=== PATIENT | female | born 1990 | race Caucasian/White ===

== ENCOUNTER → 2022-05-17 07:12 | Outpatient (CLI) | payer MEDICAID, SELFPAY | PROVIDERS: PCP Nurse Practitioner; Visit Provider Nurse Practitioner | DX: R39.89 Other symptoms and signs involving the genitourinary system (principal); B96.29 Other Escherichia coli [E. coli] as the cause of diseases classified elsewhere | CPT/HCPCS: 87086; 87088; 87186 ==

== ENCOUNTER → 2023-01-24 15:20 | Outpatient (CLI) | payer MEDICAID, SELFPAY | PROVIDERS: PCP Nurse Practitioner; Visit Provider Nurse Practitioner | DX: J06.9 Acute upper respiratory infection, unspecified (principal) | CPT/HCPCS: C9803; U0003; U0005 ==

== ENCOUNTER → 2023-02-15 23:11 | Outpatient (CLI) | payer MEDICAID, SELFPAY | PROVIDERS: PCP Nurse Practitioner; Visit Provider Nurse Practitioner | DX: R30.0 Dysuria (principal); B96.29 Other Escherichia coli [E. coli] as the cause of diseases classified elsewhere | CPT/HCPCS: 87086; 87088; 87186 ==

== ENCOUNTER 2024-02-13 08:59 | Outpatient (CLI) | payer MEDICAID, SELFPAY ==
[2024-02-13 18:24] LABS: Basophils # 0.1 K/mm3 (0-0.2); Basophils % 1.2 % (0.1-2.0); Eosinophils # 0.3 K/mm3 (0.0-0.4); Eosinophils % 4.9 % (0.1-12.0); Hematocrit 42.2 % (37.0-47.0); Hemoglobin 13.7 g/dL (12.2-16.2); Lymphocytes # 2.6 K/mm3 (0.7-4.5); Lymphocytes % 43.5 % (10-50); Mean Corpuscular HGB Conc 32.4 g/dL (31.8-35.4); Mean Corpuscular Hemoglobin 29.9 pg (27.0-31.2); Mean Corpuscular Volume 92.4 fl (81-99); Mean Platelet Volume 8.7 fl (7.4-10.4); Monocytes # 0.4 K/mm3 (0.1-1.0); Neutrophils # 2.6 K/mm3 (1.8-7.8); Neutrophils % 43.2 % (37.0-80.0); Platelet Count 250 K/mm3 (142-424); Red Blood Count 4.57 M/mm3 (4.20-5.40); Red Cell Distribution Width 12.8 % (11.5-17.5)
[2024-02-13 18:44] LABS: Hemoglobin A1C 5.2 % (4.0-6.0)
[2024-02-13 18:53] LABS: Alanine Aminotransferase 19 U/L (12-78); Albumin Level 4.1 g/dl (3.5-5.0); Albumin/Globulin Ratio 1.6 (1.1-1.8); Alkaline Phosphatase 47 U/L (38-126); Anion Gap 11.2 mEq/L (5-15); Aspartate Amino Transferase 24 U/L (14-36); Bilirubin,Total 0.4 mg/dl (0.2-1.3); Blood Urea Nitrogen 14 mg/dl (7-17); Calcium 9.2 mg/dl (8.4-10.2); Carbon Dioxide 29 mmol/L (22.0-30.0); Chloride 104 mmol/L (98-107); Estimated Glomerular Filt Rate 95 ml/min (>60); GFR (African American) 115 ML/MIN (>60); Globulin 2.6 g/dL (1.3-3.2); Glucose 78 mg/dl (74-100); Potassium 4.2 mmoL/L (3.5-5.1); Sodium 140 mmol/L (136-145); Total Protein,Serum 6.7 g/dl (6.3-8.2)
[2024-02-13 19:09] LABS: HCG,Quantitative 27 mIU/ml (0-5.42)
[2024-02-13 19:24] LABS: Thyroid Stimulating Hormone 0.85 uIU/mL (0.465-4.68)
== END 2024-02-13 23:59 | disposition home or self-care (01) ==
LOC: LAB.DROPOF 02-14 09:58
PROVIDERS: PCP Nurse Practitioner; Visit Provider Nurse Practitioner
DX: N91.2 Amenorrhea, unspecified (principal); Z34.90 Encounter for supervision of normal pregnancy, unspecified, unspecified trimester
CPT/HCPCS: 80050; 80053; 83036; 84443; 84702; 85025

== ENCOUNTER 2024-02-14 21:59 | Emergency (ER) | payer MEDICAID, SELFPAY ==
[2024-02-14 22:00] VITALS: BP 153/91; PULSE 76; RESP 16; TEMP 37.1; O2SAT 100; BMI 30.6
[2024-02-14 22:34] LABS: Microscopic, Urine URINE MICROSCOPIC (MICROSCOPIC)
[2024-02-14 22:37] LABS: Basophils # 0.2 K/mm3 (0-0.2); Basophils % 1.6 % (0.1-2.0); Eosinophils # 0.4 K/mm3 (0.0-0.4); Eosinophils % 3.9 % (0.1-12.0); Hematocrit 39.8 % (37.0-47.0); Hemoglobin 13.1 g/dL (12.2-16.2); Lymphocytes # 4.3 K/mm3 (0.7-4.5); Lymphocytes % 45.4 % (10-50); Mean Corpuscular Hemoglobin 29.9 pg (27.0-31.2); Mean Corpuscular Volume 90.7 fl (81-99); Mean Platelet Volume 8.5 fl (7.4-10.4); Monocytes # 0.5 K/mm3 (0.1-1.0); Monocytes % 5.7 % (1.7-9.3); Neutrophils # 4.1 K/mm3 (1.8-7.8); Neutrophils % 43.3 % (37.0-80.0); Platelet Count 237 K/mm3 (142-424); Red Blood Count 4.39 M/mm3 (4.20-5.40); Red Cell Distribution Width 12.9 % (11.5-17.5); White Blood Count 9.4 K/mm3 (4.8-10.8)
[2024-02-14 22:42] LABS: Chloride 104 mmol/L (98-107); Potassium 3.2 mmoL/L (3.5-5.1); Sodium 140 mmol/L (136-145)
[2024-02-14 22:44] LABS: Appearance,Urine SL CLOUDY (Clear); Bilirubin,Urine Negative (Negative); Blood, Urine 3+ (Negative); Color,Urine YELLOW (Yellow); Glucose,Urine (UA) Negative (Negative); Ketones,Urine Negative (Negative); Leukocyte Esterase,Urine Negative (Negative); Nitrate,Urine Negative (Negative); Protein,Urine Negative (Negative); Specific Gravity, Urine >= 1.030 (1.005-1.030)
[2024-02-14 22:45] LABS: Alanine Aminotransferase 22 U/L (12-78); Albumin/Globulin Ratio 1.3 (1.1-1.8); Alkaline Phosphatase 47 U/L (38-126); Anion Gap 8.2 mEq/L (5-15); Aspartate Amino Transferase 29 U/L (14-36); Bilirubin,Total 0.3 mg/dl (0.2-1.3); Blood Urea Nitrogen 15 mg/dl (7-17); Calcium 8.8 mg/dl (8.4-10.2); Carbon Dioxide 31 mmol/L (22.0-30.0); Creatinine Clearance Estimated 115 mL/min (50-200); Estimated Glomerular Filt Rate 71 ml/min (>60); GFR (African American) 86 ML/MIN (>60); Glucose 92 mg/dl (74-100)
--- NOTE | 2024-02-14 22:48 | ED_ITS ---
Discharge Plan Disposition Chief Complaint: Vaginal Bleeding Prescriptions Prescriptions: No Action montelukast 10 mg tablet 10 mg PO DAILY Qty: 30 11RF cetirizine [Zyrtec] 10 mg tablet 10 mg PO DAILY PRN (Reason: allergy symptoms) Qty: 30 3RF fluticasone propionate [Flonase Allergy Relief] 50 mcg/actuation spray,suspension 1 spray intranasal DAILY Qty: 16 2RF Rx Instructions: administer into each nostril Referrals Follow up/Referrals: Esha Bellamy APRN [Primary Care Provider] - See instructions Clinical Impressions Clinical Impression: Threatened Discharge ED Provider: Dyana Wallace General Adult HPI General Chief complaint: Vaginal Bleeding Stated complaint: poss miscarriage Time Seen by Provider: 02/14/24 22:24 Mode of Arrival: Ambulatory Source of Information: Patient Limitations: No Limitations Description of Symptoms (Recalled from ER Triage Doc. by RN): pt states she found out she was pregant on sunday and see pcp on sunday. pt states she began having bright red blood and blood clots and cramping tonight @ 6. History of Present Illness HPI narrative: Patient is a 33-year-old female presenting today with positive home test and vaginal bleeding. She states that she has been attempting to get felt as though she was 5 weeks with her primary care doctor on the had a quantitative beta-hCG that was well less than 100 had an ultrasound scheduled for tomorrow but started bleeding about 4 hours prior to arrival today. Did pass some clots. Had some cramping abdominal discomfort. States that she is not bleeding through more than a pad an hour and felt that it was similar to a white menstrual cramp and period. Denies any other past medical problems. Has not been in the past. No significant pain at the moment. Does not know her blood type. Related Data Previous Rx's Medication Instructions Recorded montelukast 10 mg tablet 10 mg PO DAILY #30 tabs 01/24/23 cetirizine 10 mg tablet (Zyrtec) 10 mg PO DAILY PRN allergy 11/16/23 symptoms #30 tabs fluticasone propionate 50 1 spray intranasal DAILY #16 grams 11/16/23 mcg/actuation nasal spray,suspension (Flonase Allergy Relief) Allergies Allergy/AdvReac Type Severity Reaction Status Date / Time No Known Allergies Allergy Verified 02/13/24 08:25 PFSH PFSH Disclaimer: The information contained in this section may have been updated after the patient was seen, as this information can be updated by other users. Medical History (Updated 02/14/24 @ 22:48 by Dyana Wallace MD) Amenorrhea Elevated serum hCG Dysuria Bladder pain Fracture of neck Cervical cancer Surgical History History of loop electrical excision procedure (LEEP) History of tonsillectomy History of elbow surgery History of neck surgery Family History Other Cancer Diabetes Heart attack Hypertension Stroke Social History Smoking Status: Current every day smoker alcohol intake: current alcohol intake frequency: holidays/special occasions only current occupational status: employed Travel in the last 8 weeks: None household members: spouse ROS Obtained: Yes All systems reviewed & no additional complaints except as documented Physical Exam General General appearance: alert and in no apparent distress Respiratory Respiratory exam: Present normal lung sounds bilaterally Cardiovascular Cardiovascular exam: Present regular rate and normal rhythm Abdominal Exam Abdominal exam: Present soft; Absent distention or tenderness Neurological Exam Neurological exam: Present alert and oriented X3 Medical Decision Making Man Inquiry Pt receiving controlled substance: No Vital Signs: 02/14/24 22:00 Temperature 98.8 F Temperature Source Oral Pulse Rate [Right] 76 Respiratory Rate 16 Blood Pressure [Right Arm] 153/91 H Blood Pressure Mean [Right Arm] 111 02 Sat by Pulse Oximetry 100 Lab Data Lab Results 02/14/24 22:14: Urine Color Yellow, Urine Appearance Sl cloudy, Urine pH 6.0, Ur Specific [place] >= 1.030, Urine Protein Negative, Urine Glucose (UA) Negative, Urine Ketones Negative, Urine Blood 3+, Urine Nitrate Negative, Urine Bilirubin Negative, Urine Urobilinogen 1.0, Ur Leukocyte Esterase Negative 02/14/24 22:30: WBC 9.4 D, RBC 4.39, Hgb 13.1, Hct 39.8, MCV 90.7, MCH 29.9, MCHC 33.0, RDW 12.9, Plt Count 237, MPV 8.5, Neut % (Auto) 43.3, Lymph % (Auto) 45.4, [place] % (Auto) 5.7, Eos % (Auto) 3.9, Baso % (Auto) 1.6, Neut # (Auto) 4.1, Lymph # (Auto) 4.3, [place] # (Auto) 0.5, Eos # (Auto) 0.4, Baso # (Auto) 0.2, Sodium 140, Potassium 3.2 L D, Chloride 104, Carbon Dioxide 31 H, Anion Gap 8.2, BUN 15, Creatinine 0.90 D, Estimated Creat Clear 115, Estimated GFR 71, Est GFR ( Amer) 86 D, Glucose 92, Calcium 8.8, Total Bilirubin 0.3, AST 29, ALT 22, Alkaline Phosphatase 47, Total Protein 7.0, Albumin 4.0, Globulin 3.0, Albumin/Globulin Ratio 1.3 02/14/24 22:30 02/14/24 22:30 Orders (Tests/Meds): ORDERS Category Date Time Status Type and Screen Stat BBK 02/14/24 22:30 Results POCUS Point of Care (ER Only) Stat Exams 02/14/24 22:30 Ordered Complete Blood Count Auto Diff Stat Lab 02/14/24 22:30 Completed Comprehensive Metabolic Panel Stat Lab 02/14/24 22:30 Results HCG,Quantitative Stat Lab 02/14/24 22:30 Results Urinalysis and Microscopic Stat Lab 02/14/24 22:14 Results Urine , HCG Qual. Stat Lab 02/14/24 22:20 Ordered Procedures Miscellaneous Procedure Procedure Performed: 33-year-old female presenting today with positive test and vaginal bleeding. She states that she had numerous urine test with that were positive and then had a quantitative beta-hCG yesterday it was less than 100. I suspect she may have a decreasing hCG from that history suggesting a failed . I did a limited bedside ultrasound which revealed an empty uterus. Cannot rule out ectopic at the moment we will repeat her hCG to see if it is trending up or down. She is very stable from a hemodynamic standpoint has a benign abdominal exam. Type and screen pending labs otherwise pending. I explained to her that this is most likely not a normal and she understands we will reassess after her workup is complete. Critical Care Critical Care Time Critical Care Time: No
[2024-02-14 23:02] LABS: HCG,Quantitative 18 mIU/ml (0-5.42)
[2024-02-14 23:31] LABS: Bacteria,Urine Trace /lpf; Mucus,Urine Trace /lpf; RBC,Urine 20-50 #/hpf (0-3); Squamous Epithelial Cell,Urine Occasional #/hpf (0-5)
[2024-02-14 23:49] VITALS: BP 147/87; PULSE 71; RESP 16; TEMP 37.1; O2SAT 100
== END 2024-02-14 23:50 | disposition home or self-care (01) ==
PROVIDERS: Emergency Provider Student in an Organized Health Care Education/Training Program; PCP Nurse Practitioner
DX: O03.4 Incomplete spontaneous abortion without complication (principal); E87.6 Hypokalemia
CPT/HCPCS: 80053; 81001; 84702; 85025; 86850; 99284

== ENCOUNTER 2024-02-22 18:30 | Outpatient (CLI) | payer MEDICAID, SELFPAY ==
[2024-02-22 18:38] LABS: Basophils # 0.1 K/mm3 (0-0.2); Basophils % 1.1 % (0.1-2.0); Eosinophils # 0.2 K/mm3 (0.0-0.4); Eosinophils % 4.2 % (0.1-12.0); Hematocrit 42.2 % (37.0-47.0); Hemoglobin 13.7 g/dL (12.2-16.2); Lymphocytes # 2.5 K/mm3 (0.7-4.5); Lymphocytes % 43.4 % (10-50); Mean Corpuscular HGB Conc 32.4 g/dL (31.8-35.4); Mean Corpuscular Hemoglobin 30.2 pg (27.0-31.2); Mean Corpuscular Volume 93.2 fl (81-99); Monocytes # 0.4 K/mm3 (0.1-1.0); Monocytes % 7.5 % (1.7-9.3); Neutrophils # 2.5 K/mm3 (1.8-7.8); Neutrophils % 43.8 % (37.0-80.0); Platelet Count 233 K/mm3 (142-424); Red Blood Count 4.53 M/mm3 (4.20-5.40); White Blood Count 5.7 K/mm3 (4.8-10.8)
[2024-02-22 20:40] LABS: Alanine Aminotransferase 19 U/L (12-78); Albumin Level 4.1 g/dl (3.5-5.0); Albumin/Globulin Ratio 1.6 (1.1-1.8); Alkaline Phosphatase 48 U/L (38-126); Anion Gap 10.4 mEq/L (5-15); Aspartate Amino Transferase 25 U/L (14-36); Bilirubin,Total 0.3 mg/dl (0.2-1.3); Blood Urea Nitrogen 15 mg/dl (7-17); Calcium 9.2 mg/dl (8.4-10.2); Carbon Dioxide 30 mmol/L (22.0-30.0); Chloride 104 mmol/L (98-107); Estimated Glomerular Filt Rate 95 ml/min (>60); GFR (African American) 115 ML/MIN (>60); Globulin 2.6 g/dL (1.3-3.2); Glucose 101 mg/dl (74-100); Potassium 4.4 mmoL/L (3.5-5.1); Sodium 140 mmol/L (136-145); Total Protein,Serum 6.7 g/dl (6.3-8.2)
[2024-02-22 20:58] LABS: HCG,Quantitative < 2 mIU/ml (0-5.42)
== END 2024-02-22 23:59 | disposition home or self-care (01) ==
LOC: LAB.DROPOF 18:31
PROVIDERS: PCP Nurse Practitioner; Visit Provider Nurse Practitioner
DX: O46.90 Antepartum hemorrhage, unspecified, unspecified trimester (principal); R79.89 Other specified abnormal findings of blood chemistry; E87.6 Hypokalemia
CPT/HCPCS: 80053; 84702; 85025

== ENCOUNTER 2024-06-06 18:43 | Outpatient (CLI) | payer MEDICAID, SELFPAY ==
[2024-06-06 20:35] LABS: HCG,Quantitative 14311 mIU/ml (0-5.42)
== END 2024-06-06 23:59 | disposition home or self-care (01) ==
LOC: LAB.DROPOF 18:44
PROVIDERS: PCP Nurse Practitioner; Visit Provider Nurse Practitioner
DX: N91.2 Amenorrhea, unspecified (principal)
CPT/HCPCS: 84702

== ENCOUNTER 2024-06-18 18:39 | Outpatient (CLI) | payer MEDICAID, SELFPAY ==
[2024-06-18 20:54] LABS: HCG,Quantitative 65628 mIU/ml (0-5.42)
== END 2024-06-18 23:59 | disposition home or self-care (01) ==
LOC: LAB.DROPOF 18:40
PROVIDERS: PCP Nurse Practitioner; Visit Provider Nurse Practitioner
DX: Z34.90 Encounter for supervision of normal pregnancy, unspecified, unspecified trimester (principal)
CPT/HCPCS: 84702

== ENCOUNTER 2024-07-28 11:45 | Outpatient (CLI) | payer MEDICAID, SELFPAY ==
[2024-07-28 18:16] LABS: Adenovirus,PCR Not Detected (NotDetected); Bordetella Pertussis Not Detected (NotDetected); Chlamydophila Pneumoniae, PCR Not Detected (NotDetected); Coronavirus 19, PCR Not Detected (NotDetected); Coronavirus 229E Not Detected (NotDetected); Coronavirus NL63 Not Detected (NotDetected); Coronavirus OC43 Not Detected (NotDetected); Coronovirus HKU1,PCR Not Detected (NotDetected); Human Metapneumovirus Not Detected (NotDetected); Influenza A, PCR Not Detected (NotDetected); Influenza AH1, 2009 Not Detected (NotDetected); Influenza AH1, PCR Not Detected (NotDetected); Influenza AH3,PCR Not Detected (NotDetected); Influenza B, PCR Not Detected (NotDetected); Mycoplasma Pneumoniae, PCR Not Detected (NotDetected); Parainfluenza 1, PCR Not Detected (NotDetected); Parainfluenza 2, PCR Not Detected (NotDetected); Parainfluenza 3, PCR Not Detected (NotDetected); Parainfluenza 4, PCR Not Detected (NotDetected); Respiratory Syncytial Virus Not Detected (NotDetected); Rhinovirus/Enterovirus Not Detected (NotDetected)
== END 2024-07-28 23:59 | disposition home or self-care (01) ==
LOC: LAB.DROPOF 07-29 15:20
PROVIDERS: PCP Nurse Practitioner; Visit Provider Nurse Practitioner
DX: J01.00 Acute maxillary sinusitis, unspecified (principal); F17.200 Nicotine dependence, unspecified, uncomplicated
CPT/HCPCS: 87633

== ENCOUNTER 2025-04-10 14:30 | Outpatient (CLI) | payer MEDICAID, SELFPAY ==
--- OUTSIDE RECORDS SUMMARY | 2025-02-24 14:00 | XMS_ITS | Encounter Summary ---
Author [place] [address] Care Team Providers Care Mincing Machine Operator Name Role Phone Lindsey Gómez NP Primary Care Provider [phone] Reason for Referral * Consultation (Routine) - Authorization Not Needed Specialty Diagnoses / Procedures Referred By Lázaro gomez Referred To Contact Gastroenterology Diagnoses Hepatitis C antibody positive in blood Procedures [place] OFFICE/OUTPATIENT NEW MODERATE MDM 45 MINUTES Carolann Emery CNM [address] [facility] [address] [place] [phone] Phone: tel: fax: Jarred Galindo MD [address] [place] [phone] Phone: tel: fax: Referral ID Status Reason Start Date Expiration Date Visits Requested Visits Authorized [id number] Authorization Not Needed Specialty Services Required 02/24/2025 08/27/2026 99 99 Question Answer Is this referral for colon cancer screening? No Provider Options First Available Reason for Visit * Reason Comments Care Vaginal delivery 12/26 01/18 Encounter Details Date Type Department Care Team (Late st Contact Info) Description 02/24/2025 2:00 PM EDT Visit [facility] [address] [address] [place] Carolann Jamesn, [facility] [address] [facility] [address] [place] [address] Menorrhagia with regular cycle (Primary Dx); History of gestational diabetes; Hepatitis C antibody positive in blood; Routine follow-up Social History Tobacco Use Types Packs/Day Years Used Date Smoking Tobacco: Former Cigarettes 1 8 Smokeless Tobacco: Never Alcohol Use Standard Drinks/Week Comments Not Currently 0 (1 standard drink = 0.6 oz pur e alcohol) [facility] Utilities Answer Date Recorded In the past 12 months has e electric, gas, oil, or water company threatened to shut off services in your home? No 01/19/2025 AUDIT-C Answer Date Recorded Q1: How often do you have a drink containing alc ohol? 2-4 times a month 01/12/2021 Q2: How many drinks containi ng alcohol do you have on a typical day when you are drinking? Not asked 01/12/2021 Q3: How often do you have si x or more drinks on one occasion? Not asked 01/12/2021 Overall Financial Resource Strain (CARDIA) Answe r Date Recorded How hard is it for you to pa y for the very basics like food, housing, medical care, and heating? Not very hard 01/19/2025 PHQ-2 Answer Date Recorded PHQ-2 Total Score 0 01/19/2025 [facility] - Occupational Stress Questionnaire Answer Date Recorded Do you feel stress - tense, restless, nervous, or anxious, or unable to sleep at night because your mind is troubled all the time - these days? Only a little 01/19/2025 Exercise Vital Sign Answer Date Recorde d On average, how many days pe r week do you engage in moderate to strenuous exercise (like a brisk walk)? 0 days 01/19/2025 On average, how many minutes do you engage in exercise at this level? 0 min 01/19/2025 Hunger Vital Sign Answer Date Recorded Within the past 12 months, y ou worried that your food would run out before you got the money to buy more. Never true 01/20/20 25 Within the past 12 months, t he food you bought just didn't last and you didn't have money to get more. Never true 01/19/2025 [facility] IP Transportation Answer D ate Recorded In the past 12 months, has l ack of reliable transportation kept you from medical appointments, meetings, work or from getting things needed for daily living? No 01/19/2025 Sexually Active Control Partners Comments Not Currently Male recent deliver y Comments No Sex and Gender Information Value Date Recorded Sex Assigned at Not on file Legal Sex Female 2:35 PM EDT Gender Identity Not on file Sexual Orientation Not on file documented as of this encounter Last Filed Vital Signs Vital Sign Reading Time Taken Comments Blood Pressure 122/84 02/24/2025 2:05 PM EDT Pulse - - Temperature - - Respiratory Rate - - Oxygen Saturation - - Inhaled Oxygen Concentration - - Weight 83.9 kg (185 lb) 02/24/2025 2:05 PM EDT Height 165.1 cm (5' 5 ) 02/24/2025 2:05 PM EDT Body Mass Index 30.79 02/24/2025 2:05 PM EDT documented in this encounter Patient Instructions * Attachments The following attachments cannot be sent through Care Everywhere. * Exercises (Swazi) * Fitness (Swazi) * Cervical cancer screening tests (Swazi) documented in this encounter Ordered Prescriptions Prescription Sig Dispense Quantity Refills Last Filled Start Date End Date medroxyPROGESTERon e (DEPO-PROVERA) 150 mg/mL IM SuspensionIndicati ons:Menorrhagia with regular cycle Inject 1 mL into the muscle once for 1 dose. 1 mL 02/24/2025 02/24/2025 documented in this encounter Progress Notes * Carolann Emery CNM - 02/24/2025 2:00 PM EDT Heidi is a 34yo premenopausal female presents to office s/p 01/18/25 for routine Ppv. Admitted @ 38.6 wks for IOL 2' poorly controlled GDMA2/AMA status. V happy w experience. Adjusting well to infant son Mushtaq Bunch. Solely breast pumping and bottle feeding w/o complication. Denies S/sx baby blues or pp depression. Sexual intercourse since del:Denies LMP since del:02/23/25->present day Request info on contraceptive options at this time. Prefers Rx Depo -used in past for several yrs wpositive results w re: cycle control. Hx v hvy cycles. Considering Mirena IUD. Pap Hx: 2023:Neg 2020:Neg Hx LEEP 2019 Review of Systems All other systems reviewed and are negative. Physical Exam BP 122/84 Ht 5' 5 (1.651 m) Wt 185 lb (83.9 kg) LMP 04/20/2024 Yes BMI 30.79 kg/m?? Constitutional: She is oriented to person, place, and time. She appears well- developed and well-nourished. HENT: Head: Normocephalic. Eyes: Conjunctivae are normal. Neck: Normal range of motion. Pulmonary/Chest: Effort normal/No respiratory distress. Abdominal: Soft. Genitourinary:Deferred. Musculoskeletal: Normal range of motion. Lymphadenopathy: She has no cervical adenopathy. Neurological: She is alert and oriented to person, place, and time. Skin: Skin is warm and dry Assessment and Plan Heidi was seen today for care. Diagnoses and all orders for this visit: Menorrhagia with regular cycle - medroxyPROGESTERone (DEPO-PROVERA) 150 mg/mL IM Suspension; Inject 1 mL into the muscle once for 1 dose. Calcium supplements and daily weight bearing exercises recommended while on Depo Provera injection for family planning. Safe sex practices reviewed at length. RTO every 12 weeks History of gestational diabetes - GLUCOSE TOLERANCE 2 HR (BASE,2HR); Future Rev assisted risks associated w Hx Dx GDMA2-->2hr GTT ordered. Enc Av w PCP Hepatitis C antibody positive in blood - AMB REFERRAL TO GASTROENTEROLOGY Referral placed to GI for assisted care Routine follow-up May resume all daily physical/sexual activities as tolerated Total face:face 35 min >50% counseling Av Due:10/22/25 Carolann Emery CNM * Jacquelin Lee, A - 02/24/2025 2:00 PM EDT [place] Depression Scale I have been able to laugh and see the funny side of things.: 0 I have looked forward with enjoyment to things.: 0 I have blamed myself unnecessarily when things went wrong.: 1 I have been anxious or worried for no good reason.: 1 I have felt scared or panicky for no very good reason.: 0 Things have been getting on top of me.: 1 I have been so unhappy that I have had difficulty sleeping.: 0 I have felt sad or miserable.: 0 I have been so unhappy that I have been crying. : 1 The thought of harming myself has occurred to me. : 0 Score: 4 Provider notified: No, PPD score < 10 documented in this encounter Miscellaneous Notes * Patient Instructions - Carolann Emery CNM - 02/24/2025 2:00 PM EDT Please feel free to call the office with any questions or concerns regarding today's visit. Carolann Emery CNM documented in this encounter Plan of Treatment Scheduled Orders Name Type Priority Associated Diagnoses Orde r Schedule GLUCOSE TOLERANCE 2 HR (BASE,2HR) Lab Timed History of gestational diabetes 1 Occurrences starting 02/24/2025 until 02/24/2026 Scheduled Referrals Name Type Priority Associated Diagnoses Order Schedule AMB REFERRAL TO GASTROENTEROLOGY Outpatient Referral Routine Hepatitis C antibody positive in blood Ordered: 02/24/2025 documented as of this encounter Goals Goal Patient Goal Type Associated Problems Recent Progress Patient-Stated? Author Maintain a healthy diet, exercise regularly and maintain an ideal body weight General Carole Ching Stay Tobacco Free Lifestyle No Carole Wiley documented as of this encounter Visit Diagnoses Diagnosis Menorrhagia with regular cycle- Primary Excessive or frequent menstruation History of gestational diabetes Personal history of gestational diabetes Hepatitis C antibody positive in blood Routine follow-up documented in this encounter Care Teams Mincing Machine Operator Relationship Specialty Start Date End Date Lindsey Gómez NP [address] [place] [address] PCP - General Nurse Practitioner-Family 10/06/21 documented as of this encounter
[2025-04-10 19:01] LABS: Hematocrit 39.8 % (37.0-47.0); Hemoglobin 13.1 g/dL (12.2-16.2); Immature Granulocytes % 0.1 %; Mean Corpuscular HGB Conc 32.9 g/dL (31.8-35.4); Mean Corpuscular Hemoglobin 28.2 pg (27.0-31.2); Mean Corpuscular Volume 85.8 fl (81-99); Nucleated Red Blood Cells % 0 %; Platelet Count 220 K/mm3 (142-424); Red Blood Count 4.64 M/mm3 (4.20-5.40); Red Cell Distribution Width-SD 37.8 fL; White Blood Count 7.1 K/mm3 (4.8-10.8)
[2025-04-10 19:44] LABS: Chloride 109 mmol/L (98-107)
[2025-04-10 19:45] LABS: Albumin Level 4.4 g/dl (3.5-5.0); Potassium 4.2 mmoL/L (3.5-5.1); Sodium 141 mmol/L (136-145)
[2025-04-10 19:47] LABS: Blood Urea Nitrogen 20 mg/dl (7-17)
[2025-04-10 19:48] LABS: Alanine Aminotransferase 21 U/L (12-78); Albumin/Globulin Ratio 1.8 (1.1-1.8); Alkaline Phosphatase 70 U/L (38-126); Anion Gap 12.2 mEq/L (5-15); Aspartate Amino Transferase 21 U/L (14-36); Bilirubin,Total 0.3 mg/dl (0.2-1.3); Calcium 9.6 mg/dl (8.4-10.2); Carbon Dioxide 24 mmol/L (22.0-30.0); Creatinine,Serum 0.70 mg/dl (0.52-1.04); Estimated Glomerular Filt Rate 95 ml/min (>60); GFR (African American) 115 ML/MIN (>60); Globulin 2.5 g/dL (1.3-3.2); Glucose 83 mg/dl (74-100); Total Protein,Serum 6.9 g/dl (6.3-8.2)
--- OUTSIDE RECORDS SUMMARY | 2025-04-13 11:59 | XMS_ITS | Encounter Summary ---
Author Organization [place] [address] Care Team Providers Care Shuttle Truck Driver Name Role Phone Lindsey Gómez NP Primary Care Provider [phone] Encounter Details Date Type Department Care Team (Late Contact Info) Description 01/05/2025 Results Follow-Up [facility] [address] [place], [place] [id number] Huong Nichole, [facility] [address] [place], [place] [id number] STREP B DNA, CHLAMYDIA/GC BY TMA Social History Tobacco Use Types Packs/Day Years Used Date Smoking Tobacco: Former Cigarettes 1 8 Smokeless Tobacco: Never Alcohol Use Standard Drinks/Week Comments Not Currently 0 (1 standard drink = 0.6 oz pur e alcohol) [facility] Utilities Answer Date Recorded In the past 12 months has [employer], gas, oil, or water [employer] threatened to shut off services in your [...] Date Recorded PHQ-2 Total Score 0 01/19/2025 [facility] - Occupational Stress Questionnaire Answer Date Recorded [...] money to get more. Never true 01/19/2025 [facility] IP Transportation Answer D ate Recorded In the past 12 months, has l ack of reliable transportation kept you from medical appointments, meetings, work or from getting things needed for daily living? No 01/19/2025 Sexually Active Control Partners Comments Yes Male Comments Yes Sex and Gender Information Value Date Recorded Sex Assigned at Not on file Legal Sex Female 2:35 PM EDT Gender Identity Not on file Sexual Orientation Not on file documented as of this encounter Functional Status * Alcohol Screening Score Answer Date of Assessment Author 0 01/17/2025 2:33 PM EDT Kaur Billingsley RN * Drug Screening Score Answer Date of Assessment Author 0 01/17/2025 2:33 PM EDT Kaur Billingsley RN * Question Answer Date of Assessment Author How often do you have a drin k containing alcohol? 0 01/17/2025 2:33 PM EDT Marley Billingsley RN How many drinks containing alcohol do you have on a typical day when you are drinking? 0 01/17/2025 2:33 PM EDT Marley Billingsley RN How often do you have six or more drinks on one occasion? 0 01/17/2025 2:33 PM EDT Kaur Wagner RN AUDIT-C to Determine Rows 4-10 0 01/17/2025 2:33 PM EDT Marley Billingsley RN * Question Answer Date of Assessment Author Little interest or pleasure in doing things 0 01/19/2025 11:27 AM EDT RuslanIrina mejía C , ELECTRO MECHANICAL TECHNOLOGIST Feeling down, depressed, or hopeless 0 01/19/2025 11:27 AM EDT RuslanIrina mejía C , ELECTRO MECHANICAL TECHNOLOGIST PHQ-2 Total Score 0 01/19/2025 11:27 AM EDT RuslanIrina mejía C, ELECTRO MECHANICAL TECHNOLOGIST * PHQ-9 Total Score Answer Date of Assessment Author 0 01/19/2025 11:27 AM EDT RuslanRaphael mejía C, ELECTRO MECHANICAL TECHNOLOGIST * Question Answer Date of Assessment Author Feeling Nervous, Anxious, or on Edge 0 01/17/2025 2:33 PM EDT Marely Billingsley RN Not Being Able to Stop or Control Worrying 0 01/17/2025 2:33 PM EDT Marley Billingsley RN Worrying too Much About Different Things 0 01/17/2025 2:33 PM EDT Marley Billingsley RN Trouble Relaxing 0 01/17/2025 2:33 PM EDT Kaur Medeiros RN Being so Restless That it is Hard to Sit Still 0 01/17/2025 2:33 PM EDT Marley Billingsley RN Becoming Easily Annoyed or Irritable 0 01/17/2025 2:33 PM BARTT Marley Billingsley RN Feeling Afraid as if Something Awful Might Happen 0 01/17/2025 2:33 PM EDT Kaur Wagner RN KAI-7 Total Score 0 01/17/2025 2:33 PM EDT Kaur Billingsley RN * Suicide Severity Rating Answer Date of Assessment Author No Risk 01/17/2025 2:33 PM EDT Kaur Billingsley RN * [place] Suicide Severity Rating Scale (Q shift for moderate and high) Question Answer Date of Assessment Author 1. In the past month, have you wished you were or wished you could go to sleep and not wake up? 0 01/17/2025 2:33 PM EDT Marley Billingsley, LIZBETH 2. In the past month, have you actually had any thoughts of killing yourself? (If no, skip to question 6) 0 01/17/2025 2:33 PM EDT Marley Billingsley RN 6. Have you ever done anything, started to do anything, or prepared to do anything to end your life? 0 01/17/2025 2:33 PM EDT Kaur Billingsley RN documented as of this encounter Plan of Treatment Not on file documented as of this encounter Goals Goal Patient Goal Type Associated Problems Recent Progress Patient-Stated? Author Maintain a healthy diet, exercise regularly and maintain an ideal body weight General No Carole Wiley Stay Tobacco Free Lifestyle No Carole Wiley documented as of this encounter Visit Diagnoses Diagnosis Supervision of other normal , antepartum- Primary documented in this encounter Care Teams Shuttle Truck Driver Relationship Specialty Start Date End Date Lindsey Gómez NP [address] [place] [address] PCP - General Nurse Practitioner-Family 10/06/21 documented as of this encounter
--- OUTSIDE RECORDS SUMMARY | 2025-04-13 11:59 | XMS_ITS | Clinical Summary ---
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 test that aids in the detection of cervical cancer and cancer precursors. Both false positive and false negative results can occur. The test should be used at regular intervals, and positive results should be confirmed before definitive therapy. Processed using the ThinPrep Boat Painter Automated cytology screening device (Secret). 10/25/2023 11:53 AM [facility] Thin Prep ENDOCERVICAL STRUCTURE / Unknown 10/22/2023 4:16 PM EST 10/22/2023 4:16 PM EST us Dianelys Bourgeois MD CYTOLOGY ORDERABLES Final Resul t [facility] [address] [phone] from Last 3 Months or Most Recently Relevant to Health Maintenance [place] [address] [place] [address] PLAN BY [facility] Advance Directives For more information, please contact: [phone] * Full Code (Latest Code Status on File) Date Activated Date Inactivated Comments 01/17/2025 2:39 PM 01/20/2025 6:20 PM Care Teams Perinatal Tech Relationship Specialty Start Date End Date Lindsey Gómez NP [address] [place] [address] PCP - General Nurse Practitioner-Family 10/06/21
--- OUTSIDE RECORDS SUMMARY | 2025-04-13 11:59 | XMS_ITS | Encounter Summary ---
Author [place] [address] Care Team Providers Care Photo Lab Manager Name Role Phone Lindsey Gómez NP Primary Care Provider [phone] Encounter Details Date Type Department Care Team (Late Contact Info) Description 01/01/2025 Results Follow-Up [facility] [address] [place] [address] Ruby Layne, [facility] [address] [place], [place] [id number] US OB DETAIL ANATOMY SINGLE OR FIRST GESTATION Social History Tobacco Use Types Packs/Day Years Used Date Smoking Tobacco: Former Cigarettes 1 8 Smokeless Tobacco: Never Alcohol Use Standard Drinks/Week Comments Not Currently 0 (1 standard drink = 0.6 oz pur e alcohol) [facility] Utilities Answer Date Recorded In the past 12 months has [employer], gas, oil, or water [employer] threatened to shut off services in your [...] Date Recorded PHQ-2 Total Score 0 01/19/2025 [facility] - Occupational Stress [...] money to get more. Never true 01/19/2025 [facility] IP Transportation Answer D ate Recorded In [...] 11:27 AM EDT RuslanIrina mejía C , PRESS CATCHER Feeling down, depressed, or hopeless 0 01/19/2025 11:27 AM EDT RuslanIrina mejía C , PRESS CATCHER PHQ-2 Total Score 0 01/19/2025 11:27 AM EDT RuslanIrina mejía C, PRESS CATCHER * PHQ-9 Total Score Answer Date of Assessment Author 0 01/19/2025 11:27 AM EDT RuslanRaphael mejía C, PRESS CATCHER * Question Answer Date of Assessment Author Feeling Nervous, Anxious, or on Edge 0 01/17/2025 2:33 PM EDT Marley Billingsley RN Not Being Able to Stop [...] 2:33 PM EDT Kaur Billingsley RN * [place] Suicide Severity Rating Scale (Q shift for [...] documented as of this encounter Visit Diagnoses Not on filedocumented in this encounter Care Teams Photo Lab Manager Relationship Specialty Start Date End Date Lindsey Gómez NP [address] [place] [address] PCP - General Nurse Practitioner-Family 10/06/21 documented as of this encounter
--- OUTSIDE RECORDS SUMMARY | 2025-04-13 11:59 | XMS_ITS | Clinical Summary ---
Author Organization [facility] Address [address] [place] [address] Care Team Providers Care Care Clinician Name Role Phone Unavailable Primary Care Provider Unavailabl e Social History Tobacco Use Types Packs/Day Years Used Date Smoking Tobacco: Never Assessed Comments Unknown Sex and Gender Information Value Date Recorded Sex Assigned at Not on file Legal Sex Female 8:56 AM EDT Gender Identity Not on file Sexual Orientation Not on file Last Filed Vital Signs Vital Sign Reading Time Taken Comments Blood Pressure 130/101 03/30/2023 5:26 PM EDT Pulse 79 03/30/2023 5:26 PM EDT Temperature - - Respiratory Rate - - Oxygen Saturation - - Inhaled Oxygen Concentration - - Weight - - Height - - Body Mass Index - - Plan of Treatment Health Maintenance Due Date Last Done Comments Dental Oral Exam 1988 Dental Prophylaxis 1988 Dental X-Ray: Bitewings 1988 [facility]-Depression Screening 1988 [facility]-HIV Screening 1988 [facility]-Hepatitis C Screening 1988 [facility]-/Child/Adol SDOH Screenings 1988 [facility]-Varicella Vaccines (1 of 2 - 13+ 2-dose series) 2001 [facility]- SDOH Screenings 2006 [facility]-Adult SDOH Screenings 2006 [facility]-DTaP,Tdap,and Td Vaccine s (1 - Tdap) 2007 [facility]-Hepatitis B Vaccines (1 of 3 - 19+ 3-dose series) 2007 [facility]-Pap Smear 2009 HPV Vaccines (1 - 3-dose SCD M series) 2015 [facility]-Cervical Cancer Screening 2018 [facility]-HPV/Cotest 2018 [facility]-NSRVN-18 Vaccine (1 - 20 24-25 season) 2024 [facility]-Influenza Vaccine (#1) 2025 Dental X-Ray: Full Mouth 03/31/2026 03/30/2023 [facility]-Zoster Vaccines (1 of 2) 2038 [facility]-HIB Vaccines Aged Out No longer e ligible based on patient's age to complete this topic [facility]-Hepatitis A Vaccines Aged Out No longer eligible based on patient's age to complete this topic [facility]-IPV Vaccines Aged Out No longer e ligible based on patient's age to complete this topic [facility]-Pneumococcal Vaccine: Pediatrics (0 to 5 Years) and At-Risk Patients (6 to 49 Years) Aged Out No long er eligible based on patient's age to complete this topic [facility]-Rotavirus Vaccines Aged Out No lo nger eligible based on patient's age to complete this topic Procedures Procedure Name Priority Date/Time Associated Diagnosis Comments PANORAMIC RADIOGRAPHIC IMAGE Routine 03/30/2023 12:00 PM EDT Pain, dental from Last 3 Months or Most Recently Relevant to Health Maintenance Insurance [facility] MEDICAID [employer] MEDICAID [facility]
--- OUTSIDE RECORDS SUMMARY | 2025-04-13 11:59 | XMS_ITS | Encounter Summary ---
[facility] Address [address] [place] [address] Care Team Providers Care Web Feeder Name Role Phone Lindsey Gómez NP Primary Care Provider [phone] Reason for Visit * Reason Onset Date Comments Other 02/26/2025 Encounter Details Date Type Department Care Team (Late st Contact Info) Description 02/26/2025 Telephone [facility] [address] [place] [address] Jarred Galindo MD [address] [place] [address] Other Social History Tobacco Use Types Packs/Day Years Used Date Smoking Tobacco: Former Cigarettes 1 8 Smokeless Tobacco: Never Alcohol Use Standard Drinks/Week Comments Not Currently 0 (1 standard drink = 0.6 oz pur e alcohol) [facility] Utilities Answer Date Recorded In the past 12 months has [employer], [employer], oil, or water [employer] threatened to shut off services in your [...] Date Recorded PHQ-2 Total Score 0 01/19/[address] [facility] Questionnaire Answer Date Recorded [...] money to get more. Never true 01/19/2025 [facility] IP Transportation Answer D ate Recorded [...] on file documented as of this encounter Miscellaneous Notes * Telephone Encounter - Zoraida Ferrera - 02/26/2025 8:46 AM EDT called pt from referral, Hepatitis C antibody positive in blood; no answer, no VM documented in this encounter Plan of Treatment Not on file documented as of this encounter Goals Goal Patient Goal Type Associated Problems Recent Progress Patient-Stated? Author Maintain a healthy diet, exercise regularly and maintain an ideal body weight General No Carole Wiley Stay Tobacco Free Lifestyle No Carole Wiley documented as of this encounter Visit Diagnoses Not on filedocumented in this encounter Care Teams Web Feeder Relationship Specialty Start Date End Date Lindsey Gómez NP [address] [place], [place] [phone] PCP - General Nurse Practitioner-Family 10/06/21 documented as of this encounter
== END 2025-04-10 23:59 ==
LOC: LAB.DROPOF 04-13 11:57
PROVIDERS: PCP Family Medicine; Visit Provider Family Medicine
DX: Z39.2 Encounter for routine postpartum follow-up (principal); O24.419 Gestational diabetes mellitus in pregnancy, unspecified control
CPT/HCPCS: 80053; 85025